=== PATIENT | female | born 1965 | race African-American/Black ===

== ENCOUNTER 2021-05-07 02:39 | Emergency (ER) | payer SELFPAY ==
[~2021-05-07] VITALS: Ht 160 cm; Wt 79.0 kg
[2021-05-07] MEDS ORDERED: ONDANSETRON 4MG ODT PO STA (04:01)
[2021-05-07] MEDS ORDERED: VISCOUS LIDOCAINE 2% 15 ML UDC PO STA (04:01)
[2021-05-07] MEDS ORDERED: DICYCLOMINE 10 MG/5 ML ORAL SYR PO STA (04:01)
[2021-05-07] MEDS ORDERED: MAGNESIUM/ALUMINUM HYDROXIDE/SIMETHICONE 30ML UDC PO STA (04:01)
[2021-05-07 05:27] LABS: BASOPHILS % 0.3 % (0.0-2.0); CHLORIDE 105 mEq/L (98-107); EOSINOPHILS % 1.3 % (0.0-5.0); HEMATOCRIT. 40.2 % (36.0-48.0); HEMOGLOBIN. 12.8 g/dL (12.0-16.0); LYMPHOCYTES % 31.6 % (20.0-50.0); MEAN CORPUSCULAR HEMOGLOBIN 24.5 pg (28.0-32.0); MEAN CORPUSCULAR VOLUME 76.8 fL (81.0-99.0); MEAN PLATELET VOLUME 7.2 fl (7.4-10.4); MONOCYTES % 8.6 % (2.0-8.0); NEUTROPHILS % 58.2 % (40.0-76.0); PLATELET 489 x1000/uL (130-400); RED BLOOD CELL COUNT 5.23 mill/uL (4.2-5.4); RED CELL DISTRIBUTION WIDTH 14.6 % (11.6-14.6)
[2021-05-07 05:48] LABS: CLARITY URINE CLOUDY (CLEAR); COLOR URINE DARK YELLOW (YELLOW); KETONES URINE 1+ (NEGATIVE); LEUKOCYTE ESTERASE URINE 3+ (NEGATIVE); NITRITE URINE NEGATIVE (NEGATIVE); OCCULT BLOOD URINE NEGATIVE (NEGATIVE); PROTEIN URINE 1+ (NEGATIVE); SPECIFIC GRAVITY URINE 1.038 (1.005-1.030)
[2021-05-07] MEDS ORDERED: LEVOFLOXACIN 750MG PREMIX 150 ML IV NR (06:00)
[2021-05-07] MEDS ORDERED: KETOROLAC 15MG/ML VIAL IV ONE (06:15)
[2021-05-07] MEDS ORDERED: HYDR-4001 MT (08:54)
[2021-05-07] MEDS ORDERED: HYDROCODONE/ACETAMINOPHEN 5/325MG TABLET PO ONE (09:00)
[2021-05-07 09:41] VITALS: BP 144/75
== END 2021-05-07 10:01 | disposition home or self-care (01) ==
LOC: ER 02:39
DX: R10.11 Right upper quadrant pain (principal); Z88.0 Allergy status to penicillin
CPT/HCPCS: 36415; 76700; 80053; 81003; 83690; 85025; 87086; 93005; 96365; 99285; J1956; Q0162